=== PATIENT | male | born 1970 | race Caucasian/White ===

== ENCOUNTER 2017-05-17 14:53 | Emergency (ER) | payer OTHER ==
[2017-05-17] MEDS: Ibuprofen TAB* 400 MG PO ONE ×2 (15:47→16:01)
[2017-05-17] MEDS ORDERED: Ibuprofen TAB* 400 MG ONE (15:49)
--- NOTE | 2017-05-17 16:31 | UC ---
Hand/Wrist HPI - HPI Summary HPI Summary: States he slipped with arm outstretched forward to break the fall about a month ago but pain subsided and he did not look for medical attention. 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 Denies fever, pain in other positions - History Of Current Complaint Chief Complaint: UCUpperExtremity Stated Complaint: WRIST INJURY Time Seen by Provider: 05/17/17 15:23 Hx Obtained From: Patient Onset/Duration: Sudden Onset, Lasting Weeks Severity Initially: Mild Severity Currently: Moderate Pain Intensity: 4 Character Of Pain: Sharp Aggravating Factor(s): Movement Alleviating Factor(s): Rest Associated Signs And Symptoms: Positive: Negative - Risk Factors Compartment Syndrome Risk Factors: Paresthesias - Allergies/Home Medications Allergies/Adverse Reactions: Allergies Allergy/AdvReac Type Severity Reaction Status Date / Time MS Penicillins [Penicillins] Allergy Unknown Verified 05/17/17 15:27 Reaction Details PMH/Surg Hx/FS Hx/Imm Hx Previously Healthy: Yes Endocrine History: Dyslipidemia Cardiovascular History: Hypertension Other History Of: Negative For: Anticoagulant Therapy - Surgical History Surgical History: None - Family History Known Family History: Positive: Renal Disease Negative: Cardiac Disease - Social History Alcohol Use: None Alcohol Amount: 16 beers Substance Use Type: None Smoking Status (MU): Heavy Every Day Tobacco Smoker Review of Systems Constitutional: Negative Musculoskeletal: Arthralgia, Myalgia All Other Systems Reviewed And Are Negative: Yes Physical Exam Triage Information Reviewed: Yes Appearance: Well-Appearing Vital Signs: Initial Vital Signs Temp 98.1 F 05/17/17 15:22 Pulse 75 05/17/17 15:22 Resp 12 05/17/17 15:22 BP 125/90 05/17/17 15:22 Pulse Ox 97 05/17/17 15:22 Vital Signs Reviewed: Yes ENT Exam: Normal Neck exam: Normal Respiratory: Positive: Chest non-tender Cardiovascular: Positive: Pulses Normal, Brisk Capillary Refill Abdomen Description: Positive: Nontender Musculoskeletal: Positive: Strength Intact, ROM Intact, No Edema, Other: - holden negative. Pain elicited with upward flexion of left wrist Hand/Wrist Course/Dx - Course Course Of Treatment: continue pain medications as prescribed, return to PCP/. Continue wrist splint qhs - Differential Dx/Diagnosis Provider Diagnoses: Tendinitis left wrist Discharge - Discharge Plan Condition: Stable Disposition: HOME Prescriptions: Ibuprofen TAB* [Motrin TAB* 400 MG] 400 mg PO Q6H PRN #60 tab PRN Reason: Pain Patient Education Materials: Tendinitis (ED) Referrals: No Primary Care Phys,NOPCP [Primary Care Provider] -
[2017-05-17 17:23] VITALS: BP 124/71
--- NOTE | 2017-05-17 17:28 | RAD ---
INDICATION: Wrist pain for weeks after a fall COMPARISON: None. TECHNIQUE: 2 views left wrist. REPORT: The visualized bones are properly aligned and well corticated. The joint spaces are normal.There is no fracture, dislocation or other focal osseous abnormality. IMPRESSION: Normal radiograph of the left wrist. If the patient's symptoms persist, follow-up imaging is recommended.
== END 2017-05-17 17:47 | disposition home or self-care (01) ==
LOC: UCEAST 14:53
DX: M77.9 Enthesopathy, unspecified (principal); M25.532 Pain in left wrist; E78.5 Hyperlipidemia, unspecified; I10 Essential (primary) hypertension; Z88.0 Allergy status to penicillin; F17.200 Nicotine dependence, unspecified, uncomplicated
CPT/HCPCS: 99213; A9270-GY; G0463

== ENCOUNTER 2019-04-19 15:47 | Emergency (ER) | payer OTHER ==
--- OUTSIDE RECORDS SUMMARY | 2019-04-19 15:56 | XMS REPORT | Summary of Care ---
:1970 Author Organization [facility] Address [address] [place] [address] Care Team Providers Name Role Phone Mariaa Grigsby Primary Care Provider Reason for Visit Reason Comments Establish Care former DR. Gomez pt, no issue at this time Encounter Details Date Type Department Care Team Description 04/08/2019 Office Visit [facility], Essential hypertension ( Primary Dx); Practice MD Mariaa Need for immunization against influenza; [address] [facility] Hyperlipidemia, unspecified hyperlipidemia type; [place] [address] [place] [address] Colon cancer screening [phone] Allergies Active Allergy Reactions Severity Noted Date Comments Penicillin G 10/10/2008 documented as of this encounter (statuses as of 04/08/2019) Medications Medication Sig Dispensed Refills Start Date End Date Status atorvastatin Take 1 Tab 30 Tab 1 03/23/2019 Active (LIPITOR) 20 MG Oral by mouth TabIndications: DAILY. Hyperlipidemia, unspecified hyperlipidemia type amLodipine (NORVASC) Take 1 Tab 30 Tab 1 03/23/2019 Active 5 MG Oral by mouth TabIndications: DAILY. Essential hypertension influenza virus Inject 0.5 1 Each 0 04/08/2019 04/08/2019 Active vaccine mL within a (FLUZONE,FLULAVAL) muscle NOW 0.5 ML Intramuscular for 1 dose. Suspension Prefilled SyringeIndications: Need for immunization against influenza Orlistat 120 MG Oral Take 120 mg 90 Cap 0 09/01/2018 04/08/2019 Discontinued CapIndications: by mouth Obesity, unspecified THREE TIMES classification, DAILY unspecified obesity NEEDED (only type, unspecified with a fatty whether serious meal. skip comorbidity present if not eating). documented as of this encounter (statuses as of 04/08/2019) Active Problems Problem Noted Date Tobacco user 12/14/2010 Obesity HTN (hypertension) Hyperlipidemia documented as of this encounter (statuses as of 04/08/2019) Resolved Problems Problem Noted Date Resolved Date Heartburn 10/10/2008 01/02/2017 history of a leukocytosis 10/10/2008 01/02/2017 Headache(784.0) 10/10/2008 01/02/2017 alcoholism 10/10/2008 01/02/2017 Chews tobacco 09/01/2018 documented as of this encounter (statuses as of 04/08/2019) Immunizations Name Administration Dates Next Due Influenza (IM) Preservative Free 01/02/2017, 05/28/2010 PNEUMOCOCCAL POLYSACCHARIDE VACCINE 05/28/2010 TDAP Vaccine 01/02/2017 documented as of this encounter Social History Tobacco Use Types Packs/Day Years Used Date Current Some Day Smoker Cigarettes 0.1 20 Smokeless Tobacco: Former User Comments: 2 cigs a day now. wants to quit by himself. smoked 1.5 for 20 years. Alcohol Use Drinks/Week oz/Week Comments No sober for 2 years since DWI. no more counseling Sex Assigned at Date Recorded Not on file Job Start Date Occupation Industry Not on file Not on file Not on file Travel History Travel Start Travel End No recent travel history available. documented as of this encounter Last Filed Vital Signs Vital Sign Reading Time Taken Comments Blood Pressure 134/72 04/08/2019 5:53 PM EST Pulse 91 04/08/2019 5:53 PM EST Temperature 37.2 04/08/2019 5:53 PM EST C (98.9 F) Respiratory Rate - - Oxygen Saturation 94% 04/08/2019 5:53 PM EST Inhaled Oxygen Concentration - - Weight 108.9 kg (240 lb) 04/08/2019 5:53 PM EST Height 177.8 cm (5' 10") 04/08/2019 5:53 PM EST Body Mass Index 34.44 04/08/2019 5:53 PM EST documented in this encounter Patient Instructions Patient InstructionsMariaa Grigsby MD - 04/08/2019 6:20 PM EST1. Schedule fasting blood tests in 6 months 2. I will make a referral for Cologuard test documented in this encounter Progress Notes Mariaa Grigsby MD - 04/08/2019 6:20 PM EST Patient: Kamaljit Bassett Jr. Date of Service: 04/08/2019 Subjective: Kamaljit Bassett Jr. is a 49-y.o. male who presents for Chief Complaint Patient presents with Count Includes [facility] Care former DR. Gomez pt, no issue at this time Patient comes to establish Past Medical History: Diagnosis Date alcoholism 10/10/2008 history of leukocytosis 10/10/2008 HTN (hypertension) Hyperlipidemia Obesity Outpatient Medications as of 04/08/2019 Medication Sig Dispense Refill amLodipine (NORVASC) 5 MG Oral Tab Take 1 Tab by mouth DAILY. 30 Tab 1 atorvastatin (LIPITOR) 20 MG Oral Tab Take 1 Tab by mouth DAILY. 30 Tab 1 No current facility-administered medications on file as of 04/08/2019. Allergies Allergen Reactions Penicillin G Review of Systems: All remaining review of systems was negative. Objective: BP 134/72 (BP Location: Right arm, Patient Position: Sitting) Pulse 91 Temp 98.9 F (37.2 C) (Tympanic) Ht 5' 10" (1.778 m) Wt 240 lb (108.9 kg) SpO2 94% BMI 34.44 kg/m2 GENERAL: alert, no distress THROAT: lips, mucosa, and tongue normal: teeth and gums normal NECK: supple, symmetrical, trachea midline, no adenopathy and thyroid: not enlarged, symmetric, notenderness/mass/nodules LUNGS: clear to auscultation bilaterally HEART: regular rate and rhythm, S1, S2 normal, no murmur, click, rub or gallop EXTREMITIES: no edema CMP - slightly elevated sugar, FLP - OK Component Latest Ref Rng & Units 04/08/2019 04/08/2019 7:14 AM 7:14 AM Sodium 134 - 145 mmol/L 141 Potassium 3.5 - 5.1 mmol/L 4.5 Chloride 98 - 107 mmol/L 105 CO2 22 - 30 mmol/L 28 Calcium 8.3 - 10.1 mg/dl 9.5 Albumin 3.5 - 5.0 g/dl 4.2 BUN 9 - 20 mg/dl 15 Creatinine 0.8 - 1.5 mg/dl 0.6 (L) Glucose (Lab) 70 - 99 mg/dl 101 (H) Protein,Total 6.3 - 8.2 g/dl 7.6 Total Bilirubin 0.0 - 1.1 MG/DL 0.4 AST 17 - 59 U/L 26 ALT 21 - 72 U/L 42 ALKALINE PHOSPHATASE 40 - 150 U/L 72 eGFR See Interpretation Below ml/min/1.73ml Sq >60 BUN/Creatinine Ratio 6 - 22 RATIO 25 (H) Anion Gap 3 - 11 mmol/L 8 A/G Ratio 0.8 - 2.0 ratio 1.2 Cholestrol <200 mg/dl 170 HDL >40 mg/dl 49 Triglycerides <150 mg/dl 67 LDL Cholesterol <100 MG/DL 108 (H) Cholesterol / HDL Ratio RATIO 3.5 LDL / HDL Ratio 2.2 Non-HDL Cholesterol 0 - 130 MG/DL 121 Patient Fasting: Yes Patient advised on tests results ICD-9-CM ICD-10-CM 1. Essential hypertension 401.9 I10 2. Need for immunization against influenza V04.81 Z23 influenza virus vaccine ( FLUZONE,FLULAVAL) 0.5ML Intramuscular Suspension Prefilled Syringe 3. Hyperlipidemia, unspecified hyperlipidemia type 272.4 E78.5 COMPREHENSIVE METABOLIC PANEL LIPID PROFILE Patient Instructions 1. Schedule fasting blood tests in 6 months 2. I will make a referral for Cologuard test Author: Mariaa Grigsby MD documented in this encounter Plan of Treatment Date Type Specialty Care Team Description 10/11/2019 Lab Internal Medicine Name Type Priority Associated Diagnoses Order Schedule COMPREHENSIVE Lab Routine Hyperlipidemia, Expected: METABOLIC PANEL unspecified 04/08/2019 hyperlipidemia type (Approximate), Expires: 04/08/2020 LIPID PROFILE Lab Routine Hyperlipidemia, Expected: unspecified 04/08/2019 hyperlipidemia type (Approximate), Expires: 04/08/2020 COLOGUARD STOOL DNA Lab - Exact Routine Colon cancer screening Ordered: TEST (EXTERNAL) Sciences 04/08/2019 Health Maintenance Due Date Last Done Comments Colonoscopy 02/20/2018 INFLUENZA VACCINE (#1) 2018 01/02/2017, 05/28/2010 DEPRESSION SCREENING 04/08/2020 04/08/2019 DIABETES SCREENING 04/08/2020 04/08/2019, 02/25/2018, 08/27/2017, Additional history exists LIPID DISORDER SCREENING 04/08/2020 04/08/2019, 03/23/2019, 02/25/2018, Additional history exists ZOSTER IMMUNIZATION SERIES 04/08/2020 Postponed from (1 of 2) 02/20/2018 (Vaccine not available) DTaP/Tdap/Td Vaccines (2 - 01/02/2027 01/02/2017 Tdap) PNEUMOCOCCAL 0-64 YRS Completed 05/28/2010 HEPATITIS A IMMUNIZATION Aged Out No longer eligible SERIES based on patient's age to complete this topic HPV IMMUNIZATION SERIES Aged Out No longer eligible based on patient's age to complete this topic MENINGOCOCCAL VACCINE IMM Aged Out No longer eligible based on patient's age to complete this topic documented as of this encounter Goals Goal Patient Goal Associated Recent Patient-Stated? Author Type Problems Progress Blood Pressure Blood Pressure 134/72 No Adi Gomez < 140/90 (04/08/2019 DO Josiah 5:53 PM EST) Note: This is an individualized treatment (blood pressure) goal for Kamaljit Bassett Jr.: Displayed above (on the left) is your goal for blood pressure control. Your most recent blood pressure is also shown above, on the right. You should try to achieve blood pressures that are lower than your goal listed above (on the left). Weight loss vs. 18 mo Lifestyle 4.3 (04/08/2019 5:53 PM EST) Adi Muhammad DO max (lbs) >= 10 Note: This is an individualized lifestyle goal for Kamaljit Bassett Jr.: Your body mass index (BMI) is more than 30. You should lose weight. A reasonable starting goal is to lose 10 pounds. Displayed above is how many pounds you have lost thus far towards your 10 pound weight loss goal. Take all prescribed medications as directed Self-management Adi Muhammad DO Note: This is an individualized self-management goal for Kamaljit Bassett Jr.: Please take all prescribed medications as directed. 1. Do not skip doses. If you cannot afford your medications, talk with your doctor. 2. Use a pill reminder system such as a pill box if needed. Your pharmacist can help you with this. 3. Contact your Pharmacy 5 days before your medication runs out. If you cannot take your medications for any reasons, talk with your doctor. 4. Please bring all of your medication bottles and inhalers (or a list of all your medications/inhalers) with you to every visit. Potential barriers to meeting all of your care plan goals will continue to be addressed on an ongoing basis. documented as of this encounter Results Not on filedocumented in this encounter Visit Diagnoses Diagnosis Need for immunization against influenza Need for prophylactic vaccination and inoculation against influenza Hyperlipidemia, unspecified hyperlipidemia type Essential hypertension Unspecified essential hypertension Colon cancer screening Special screening for malignant neoplasms, colon documented in this encounter Insurance Payer Benefit Plan / Subscriber ID Effective Dates Phone Address Type Group POMCO POMCO xxxxxxxxx Effective for Commercial [place] all dates [facility] COMMERCIAL UMR [facility] xxxxxxxxx 2016-Present [facility] Guarantor Name Account Type Relation to Date of Phone Billing Address Patient Kamaljit Bassett Personal/Famil 1970 [id number] (Home) [address] [phone] [place], [place] (Work) [id number] documented as of this encounter
[2019-04-19 16:04] VITALS: BP 139/91
--- NOTE | 2019-04-19 16:04 | UC ---
Shoulder Pain HPI - HPI Summary HPI Summary: 49 yo male presents with LEFT shoulder pain. He tells me that on 01/20/19 he was at work and went to pull out a drawer of sorts. Drawer was unexpectedly heavy and it fell to the ground, pulling his arms down with it. He felt an immediate pull in his left shoulder. He rested and iced the area and thought it was getting better, but over the last few weeks has been worsening. He has pain to the anterior shoulder and a burning sensation at times. Hurts to flex biceps or lift items. States he has not been evaluated for this injury until today. Denies numbness or tingling. Has been taking aleve for his pain with mild relief at times. - History of Current Complaint Stated Complaint: LEFT SHOULDER INJURY Time Seen by Provider: 04/19/19 15:59 Hx Obtained From: Patient Onset/Duration: Sudden Onset Severity Initially: Moderate Severity Currently: Moderate Pain Intensity: 3 Pain Scale Used: 0-10 Numeric - Allergies/Home Medications Allergies/Adverse Reactions: Allergies Allergy/AdvReac Type Severity Reaction Status Date / Time MS Penicillins [Penicillins] Allergy Unknown Verified 05/17/17 15:27 Reaction Details Home Medications: Home Medications Blood Pressure Med 04/19/19 [History] Cholesterol Med 04/19/19 [History] PMH/Surg Hx/FS Hx/Imm Hx Endocrine History: Dyslipidemia Cardiovascular History: Hypertension Other History Of: Negative For: Anticoagulant Therapy - Surgical History Surgical History: None - Family History Known Family History: Positive: Renal Disease Negative: Cardiac Disease - Social History Lives: With Family Alcohol Use: Occasionally Alcohol Amount: 16 beers Substance Use Type: None Smoking Status (MU): Heavy Every Day Tobacco Smoker Review of Systems All Other Systems Reviewed And Are Negative: No Constitutional: Positive: Negative Skin: Positive: Negative Respiratory: Positive: Negative Cardiovascular: Positive: Negative Neurovascular: Positive: Negative Musculoskeletal: Positive: Other: - Left shoulder injury Neurological: Positive: Negative Psychological: Positive: Negative Physical Exam - Summary Physical Exam Summary: GENERAL: NAD. WDWN. No pain distress. SKIN: No rashes, sores, lesions, or open wounds. CHEST: No accessory muscle use. Breathing comfortably and in no distress. CV: Pulses intact radial and ulnar. Cap refill <2seconds MSK: LEFT SHOULDER: Mild TTP about anterior shoulder. No miguel muscle. FROM. Strength 5/5. No edema or obvious bony deformities. Weak positive empty can. NEURO: Alert. Sensations intact hand and all fingers. PSYCH: Age appropriate behavior. Triage Information Reviewed: Yes Vital Signs: Vital Signs: Temp Pulse Resp BP Pulse Ox 99.8 F 89 16 139/91 99 04/19/19 15:59 04/19/19 15:59 04/19/19 15:59 04/19/19 15:59 04/19/19 15:59 Vital Signs Reviewed: Yes Diagnostics - Radiology Shoulder XR Radiology Interpretation Completed By: Radiologist Summary of Radiographic Findings: IMPRESSION: MILD OSTEOARTHRITIS. NO ACUTE OSSEOUS INJURY. IF SYMPTOMS PERSIST, RECOMMEND REPEAT IMAGING. Shoulder Course/Dx - Course Course Of Treatment: XR as above. 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 Advised to continue taking his Aleve as directed and f/u with [facility] Med Dr. Uribe for further evaluation regarding his work related injury - Differential Dx/Diagnosis Provider Diagnosis: Left shoulder pain Discharge ED - Sign-Out/Discharge Documenting (check all that apply): Patient Departure All imaging exams completed and their final reports reviewed: Yes - Discharge Plan Condition: Stable Disposition: HOME Patient Education Materials: Rotator Cuff Injury (ED) Referrals: No Primary Care Phys,NOPCP [Primary Care Provider] - Gus Uribe MD [Medical Doctor] - As Soon As Possible Additional Instructions: If you develop a fever, shortness of breath, chest pain, new or worsening symptoms - please call your PCP or go to the ED immediately. Your blood pressure was high at todays visit. Please see your primary provider within 4 weeks for recheck and re-evaluation. May continue to take your aleve as directed Given your continued shoulder pain - I recommend that you call Dr. Uribe at the number below to schedule an appointment for further evaluation regarding your work related injury. - Billing Disposition and Condition Condition: STABLE Disposition: Home
== END 2019-04-19 16:47 | disposition home or self-care (01) ==
LOC: UCEAST 15:47
DX: M25.512 Pain in left shoulder (principal); M19.012 Primary osteoarthritis, left shoulder; E78.5 Hyperlipidemia, unspecified; I10 Essential (primary) hypertension; F17.200 Nicotine dependence, unspecified, uncomplicated; X50.9XXA Other and unspecified overexertion or strenuous movements or postures, initial encounter; Y92.9 Unspecified place or not applicable; Y99.0 Civilian activity done for income or pay; Z88.0 Allergy status to penicillin; Z79.899 Other long term (current) drug therapy
CPT/HCPCS: 99211; G0463